=== PATIENT | male | born 1965 | race Caucasian/White ===

== ENCOUNTER 2018-12-17 08:00 | Day surgery (SDC) | payer OTHER ==
[2018-12-13 10:49] VITALS: BMI 29.1
[2018-12-17] MEDS ORDERED: PROPOFOL 20 ML ONE ×3 (09:22)
[2018-12-17 10:44] VITALS: TEMP 97.8
[2018-12-17 11:27] VITALS: BP 117/72; PULSE 56
--- NOTE | 2018-12-19 16:26 | PATH ---
Surgical Pathology Report Patient Name: FAIZA PIZARRO [facility]. Rec. #: [id number] /Age/Gender: 1965 (Age: 53) / M Account: [id number] Location: [facility] Taken: 12/17/2018 Received: 12/17/2018 Reported: 12/19/2018 Physicians: Oswaldo Del Real M.D. Specimen(s) Received A: DUODENUM B: ANTRUM Clinical History GERD, rule out colon cancer Postoperative diagnosis: Gastritis Final Diagnosis A. DUODENUM, BIOPSY: DUODENAL MUCOSA WITH MILD CHRONIC DUODENITIS AND PRESERVED VILLOUS ARCHITECTURE. B. STOMACH, ANTRUM, BIOPSY: GASTRIC ANTRAL MUCOSA WITH MILD CHRONIC GASTRITIS. IMMUNOHISTOCHEMICAL STAIN FOR H. PYLORI IS NEGATIVE. Electronically Signed Ginna Lyon M.D. Gross Description A. Received in formalin, labeled "duodenum biopsy" are 2 galdamez, irregular portions of soft tissue averaging 0.4 cm. in greatest dimension. The specimens are submitted in toto in one cassette. B. Received in formalin, labeled "antrum biopsy" are 3 galdamez, irregular portions of soft tissue ranging from 0.4-0.5 cm. in greatest dimension. The specimens are submitted in toto in one cassette. /12/18/201812/18/2018
== END 2018-12-17 11:28 | disposition home or self-care (01) ==
LOC: FASU-ENDO 08:00
PROVIDERS: ATTEND Internal Medicine Gastroenterology
PROC: 0DB98ZX Excision of Duodenum, Via Natural or Artificial Opening Endoscopic, Diagnostic (ICD-10-PCS; 2018-12-17)
PROC: 0DB68ZX Excision of Stomach, Via Natural or Artificial Opening Endoscopic, Diagnostic (ICD-10-PCS; 2018-12-17)
PROC: 0DJD8ZZ Inspection of Lower Intestinal Tract, Via Natural or Artificial Opening Endoscopic (ICD-10-PCS; principal; 2018-12-17 09:56)
DX: Z12.11 Encounter for screening for malignant neoplasm of colon (principal); K29.80 Duodenitis without bleeding; K29.50 Unspecified chronic gastritis without bleeding; R12 Heartburn
CPT/HCPCS: 88305-TC; 88342-TC

== ENCOUNTER 2023-01-16 14:10 | Emergency (ER) | payer OTHER ==
[2023-01-16 14:34] VITALS: BMI 29.8
[2023-01-16] MEDS ORDERED: METOCLOPRAMIDE HCL INJECTION 10 MG/2 ML VIAL IVPB ONE (14:48)
[2023-01-16] MEDS ORDERED: MECLIZINE HCL 25 MG TABLET (FP) PO ONE (14:48)
[2023-01-16] MEDS ORDERED: METOCLOPRAMIDE HCL INJECTION 10 MG/2 ML VIAL ONE (14:58)
[2023-01-16] MEDS ORDERED: MECLIZINE HCL 25 MG TABLET (FP) ONE (14:58)
[2023-01-16 15:23] LABS: BASO % 0.4 % (0-2.0); EOS % 0.6 % (0-4.5); HEMATOCRIT 40.4 % (35.4-49); HEMOGLOBIN 14.2 GM/dL (11.7-16.9); LYMPH % 16.6 % (8-40); MCH 30.8 pg (25.7-33.7); MCHC 35.1 g/dl (32.0-35.9); MEAN CELL VOLUME 87.6 fl (80-96); MEAN PLT VOLUME 11.4 fl (7.5-11.1); NEUT % 76.4 % (42.8-82.8); PLATELET COUNT 133 10^3/uL (134-434); RBC 4.61 M/mm3 (4.00-5.60); RDW 13.3 % (11.9-15.9); WHITE BLOOD COUNT 9.2 K/mm3 (4.0-10.0)
[2023-01-16 15:27] LABS: INR 1.04 (0.83-1.09); PROTHROMBIN TIME (PATIENT) 12.1 SEC (9.7-13.0)
[2023-01-16 15:30] LABS: ACTIVATED PTT 25.5 SECONDS (25.2-36.5)
[2023-01-16 15:41] LABS: ALBUMIN 4.2 g/dl (3.4-5.0)
[2023-01-16 15:42] LABS: CALCIUM 9.3 mg/dL (8.5-10.1)
[2023-01-16 15:44] LABS: CREATININE 1.2 mg/dL (0.55-1.3)
[2023-01-16 15:45] LABS: BILIRUBIN,TOTAL 0.7 mg/dL (0.2-1); TOT PROT 7.4 g/dl (6.4-8.2)
[2023-01-16 18:15] VITALS: BP 115/62; PULSE 67; RESP 16; TEMP 98.6
== END 2023-01-16 18:20 | disposition home or self-care (01) ==
LOC: JER 14:10
PROC: 3E033GC Introduction of Other Therapeutic Substance into Peripheral Vein, Percutaneous Approach (ICD-10-PCS; principal; 2023-01-16)
DX: R42 Dizziness and giddiness (principal); R11.2 Nausea with vomiting, unspecified; H53.71 Glare sensitivity
CPT/HCPCS: 36415; 70450-TC; 71045-TC-FY; 80053; 83690; 84484; 85025; 85610; 85730; 86850; 86900; 86901; 93005; 93010; 99285-25